=== PATIENT | male | born 1990 | race Caucasian/White ===

== ENCOUNTER 2019-11-25 21:15 | Emergency (ER) | payer BC, SELFPAY ==
--- NOTE | ~2019-11-25 | XR_ITS ---
EXAMINATION: XR chest 2V DATE: 11/25/2019 22:23 INDICATION: Cough with left arm and back pain. TECHNIQUE: PA and lateral views of the chest were obtained. COMPARISON: Chest radiograph dated 09/12/2019 FINDINGS: The lungs remain clear with no focal airspace opacities, pulmonary edema, pleural effusion or pneumot horax. The cardiomediastinal silhouette is normal. Visualized bones and soft tissues are unremarkable . IMPRESSION: 1. Normal chest radiograph. Reviewed, dictated and finalized at location A. TECHNICIAN IMPRESSION: 1. Normal chest radiograph.
[2019-11-25 21:33] VITALS: BP 127/76; PULSE 100; RESP 16; TEMP 36.4; O2SAT 100
[2019-11-25 22:07] VITALS: BP 132/83; PULSE 77; RESP 18; TEMP 36.8; O2SAT 97
--- NOTE | 2019-11-25 22:37 | ECG_ITS ---
Measurements Intervals [place] Rate: 76 P: 56 NH: 181 QRS: 68 QRSD: 98 T: 71 QT: 360 QTc: 405 Interpretive Statements SINUS RHYTHM INCOMPLETE RIGHT BUNDLE BRANCH BLOCK CONSIDER TYPE 3 BRUGADA PATTERN ABNORMAL ECG Electronically Signed On 11-26-2019 6:43:27 CRACKER DOUGH MIXER by Gennaro Braun D.O.
[2019-11-25] MEDS: KETOROLAC (*BKC) 60 MG/2 ML VIAL IM (22:52)
[2019-11-25] MEDS: DIAZEPAM 5 MG TABLET PO (22:53)
--- NOTE | 2019-11-25 23:16 | ED.URI ---
HPI - URI/Sore Throat General Chief Complaint: Upper Respiratory Infection Stated Complaint: Back pain, cough Time Seen by Provider: 11/25/19 22:12 Source: patient Mode of arrival: ambulatory Limitations: no limitations History of Present Illness HPI Narrative: This is a 29 year old male that presents to the ER for cough x 3 days. Also reports some mid back that has been constant. Reports it is worse with movement. Reports left sided chest pain when he coughs. He tried taking some Tylenol yesterday with little relief. Denies fever, shortness of breath, weakness, or numbness. Related Data Home Medications Medication Instructions Recorded Confirmed No Home Medications 11/25/19 11/25/19 Allergies Allergy/AdvReac Type Severity Reaction Status Date / Time bee pollen Allergy Unknown Difficulty Verified 11/25/19 21:36 Breathing bee stings Allergy Severe trouble Uncoded 11/25/19 21:36 breathing Review of Systems Review of Systems: Narrative: CONSTITUTIONAL: Denies fever ENT: Denies rhinorrhea, congestion, sore throat, or otalgia. CARDIOVASCULAR: Reports chest pain. Denies edema. RESPIRATORY: Reports cough. Denies dyspnea. NEUROLOGIC: Denies numbness, or weakness. All systems reviewed & are unremarkable except as noted in HPI and below PMFSH Past Medical History Medical History (Updated 11/26/19 @ 01:06 by Queenie Witt PA-C) History of asthma Social History Social History (Updated 11/26/19 @ 01:00 by Queenie Witt PA-C) Smoking status: Current every day smoker Alcohol intake: never Substance use: never Gender identity (if verbalized by the patient): Male Exam Narrative: Exam Narrative: GENERAL: Well-appearing, well-nourished, and in no acute distress. HEAD: Normocephalic, atraumatic. EYES: EOMI. ENT: Nares clear, no rhinorrhea or epistaxis. Mucous membranes moist. Oropharynx without tonsillar hypertrophy exudate or other lesions. Bilateral TMs pearly nur non-bulging NECK: Supple. No adenopathy or masses. CHEST: Clear to auscultation. No respiratory distress. No wheezes rales or rhonchi. Tender palpation of left mid anterior chest wall HEART: Regular rate and rhythm. No murmur heard. Normal peripheral pulses. BACK: No midline spinal tenderness. Tender to palpation of thoracic paraspinal musculature EXTREMITIES: Normal range of motion. No edema. Strength equal in bilateral upper and lower extremities (5/5) SKIN: Warm, dry, no rash. NEURO: No focal deficits. Alert and oriented x3. PSYCH: Normal mood and affect Course Consultations Consultation #1: Spoke with Dr. Norton about patient and work-up will follow-up in clinic Date: 11/26/19 Time: 01:02 Vital Signs Vital signs: Vital Signs Temperature 97.6 F 11/25/19 21:33 Pulse Rate 100 11/25/19 21:33 Respiratory Rate 16 11/25/19 21:33 Blood Pressure 127/76 11/25/19 21:33 Pulse Oximetry 100 11/25/19 21:33 Temperature 98.2 F 11/25/19 22:07 Pulse Rate 77 11/25/19 22:07 Respiratory Rate 18 11/25/19 22:07 Blood Pressure 132/83 11/25/19 22:07 Pulse Oximetry 97 11/25/19 22:07 MDM - URI/Sore Throat MDM Narrative Medical decision making narrative: Patient presents to the emergency department for left-sided chest pain and mid back pain since yesterday. Pain is reproducible. Patient is afebrile and nontoxic-appearing. Mild anemia on CBC, otherwise no acute changes. Metabolic panel is without acute changes. D-dimer and troponin are not elevated. Chest x-ray is without acute changes. Possible Brugada-like pattern on EKG. Patient does report history of syncopal episodes, the last one being 3 years ago. HEART score is 2. I spoke with Dr. norton about patient work-up who will follow-up in clinic. Patient was given warnings to return to the ER Lab Data Attestation: I reviewed the patient's lab results. Result diagrams: 11/25/19 23:12 11/26/19 00:09 Labs: Lab Results 11/25/19
[2019-11-25 23:34] LABS: Basophils Absolute Auto 0.1 K/mm3 (0.0-0.1); Basophils Percent Auto 0.5 % (0.2-1.2); Eosinophils Absolute Auto 0.5 K/mm3 (0-0.3); Eosinophils Percent Auto 5.5 % (0-4.4); Hematocrit 39.4 % (42.0-52.0); Hemoglobin 13.4 g/dL (14.0-18.0); Immature Granulocyte Absolute 0.01 K/mm3 (0.00-0.031); Immature Granulocyte Percent A 0.1 % (0-0.5); Lymphocytes Absolute Auto 3.67 K/mm3 (0.9-3.2); Lymphocytes Percent Auto 38.1 % (18.3-44.2); Mean Corpuscular Hemoglobin 30.2 pg (26-34); Mean Corpuscular Volume 88.7 fl (80-100); Mean Platelet Volume 10.7 fl (7.4-10.4); Monocytes Absolute Auto 0.7 K/mm3 (0.1-0.6); Monocytes Percent Auto 7.5 % (2.6-8.5); Neutrophils Absolute Auto 4.6 K/mm3 (1.3-6.7); Neutrophils Percent Auto 48.3 % (45.5-73.1); Platelet Count Result 233 k/mm3 (150-375); Red Blood Count 4.44 M/mm3 (4.6-6.20); Red Cell Distribution Width 12.4 % (11.5-14.5); White Blood Count 9.6 K/mm3 (4.5-10.0)
[2019-11-26 00:01] LABS: D Dimer 0.27 ug/mL (<0.48)
[2019-11-26 00:33] LABS: Blood Urea Nitrogen 18 mg/dL (9-20); Calcium 8.8 mg/dL (8.4-10.2); Carbon Dioxide 29 mmol/L (22-30); Chloride 102 mmol/L (98-107); Estimated CRCL calculation 119 ml/min; Estimated Glomerular Filt Rate > 60; Glucose 115 mg/dL (75-110); Potassium 3.6 mmol/L (3.4-5.0); Sodium 138 mmol/L (137-145)
[2019-11-26 00:43] LABS: Troponin I < 0.012 ng/mL (0.000-0.034)
[2019-11-26 01:26] VITALS: BP 128/78; PULSE 74; RESP 16; TEMP 36.8; O2SAT 100
== END 2019-11-26 01:28 | disposition home or self-care (01) ==
PROVIDERS: Physician Assistant; Emergency Provider Emergency Medicine; PCP Family Medicine
DX: M54.6 Pain in thoracic spine (principal); F17.210 Nicotine dependence, cigarettes, uncomplicated; J45.909 Unspecified asthma, uncomplicated
CPT/HCPCS: 36415; 71046; 80048; 84484; 85025; 85380; 87804; 93005; 96372; 99284; A9270; J1885

== ENCOUNTER 2019-11-26 15:53 | Emergency (ER) | payer BC, SELFPAY ==
--- NOTE | ~2019-11-26 | XR_ITS ---
EXAMINATION: XR ribs LT 2V DATE: 11/26/2019 16:24 INDICATION: Mid to left anterior rib/chest pain. TECHNIQUE: 4 views of the left ribs were obtained. COMPARISON: Chest radiograph dated 11/25/2019 FINDINGS: No rib fractures identified. Small calcified nodule at the lateral left midlung zone consistent with old granulomatous disease. Left lung and visualized portions of the right lung are otherwise clear wi th no pulmonary edema, pleural effusion or pneumothorax. Cardiomediastinal silhouette is normal. Norm al bowel gas pattern. IMPRESSION: 1. No rib fracture or acute cardiopulmonary disease. Reviewed, dictated and finalized at location A. MATION QA TESTER
--- NOTE | 2019-11-26 15:55 | ECG_ITS ---
Measurements Intervals [place] Rate: 93 P: 72 OR: 175 QRS: 45 QRSD: 106 T: 56 QT: 336 QTc: 420 Interpretive Statements SINUS RHYTHM INCOMPLETE RIGHT BUNDLE BRANCH BLOCK CONSIDER BRUGADA PATTERN BASELINE ARTIFACT- I, II, AVR, AVL ABNORMAL ECG Electronically Signed On 11-26-2019 19:47:36 GRAVITY PROSPECTING OPERATOR HELPER by Gennaro Braun D.O.
[2019-11-26 16:03] VITALS: BP 149/81; PULSE 76; RESP 20; O2SAT 100
[2019-11-26 16:10] VITALS: PULSE 80
[2019-11-26 16:15] VITALS: BP 138/85; BP 139/81; PULSE 86
[2019-11-26 16:17] VITALS: BP 130/82; PULSE 93
--- NOTE | 2019-11-26 16:21 | ED.CHESTPAIN ---
HPI - Chest Pain General Chief Complaint: Chest Pain <SLAVA Hogan Last Filed: 11/26/19 18:11> Stated Complaint: CP <SLAVA Hogan Last Filed: 11/26/19 18:11> Time Seen by Provider: 11/26/19 16:00 <SLAVA Hogan Last Filed: 11/26/19 18:11> Source: patient <SLAVA Hogan Last Filed: 11/26/19 18:11> Mode of arrival: ambulatory <SLAVA Hogan Last Filed: 11/26/19 18:11> Limitations: no limitations <SLAVA Hogan Last Filed: 11/26/19 18:11> History of Present Illness HPI narrative: This is a 29 year old male that presents to the ER for left sided chest pain that started just prior to arrival. Reports he was smoking a cigarette and started to feel nauseas. Reports he walked home and started to get lightheaded. Reports he layed down and started to have some left sided chest pain that was sharp. Reports it is still present, but not quite as severe. Reports lightheadedness is worse with standing. Denies shortness of breath, vomiting, numbness or weakness. <SLAVA Hogan Last Filed: 11/26/19 18:11> Related Data Home Medications: Home Medications Medication Instructions Recorded Confirmed No Home Medications 11/25/19 11/25/19 <SLAVA Hogan Last Filed: 11/26/19 18:11> Allergies/Adverse Reactions: Allergies Allergy/AdvReac Type Severity Reaction Status Date / Time bee pollen Allergy Unknown Difficulty Verified 11/25/19 21:36 Breathing bee stings Allergy Severe trouble Uncoded 11/25/19 21:36 breathing <SLAVA Hogan Last Filed: 11/26/19 18:11> Review of Systems Review of Systems: Narrative: CONSTITUTIONAL: Denies fever ENT: Denies rhinorrhea, congestion, sore throat, or otalgia. CARDIOVASCULAR: Reports chest pain. Denies palpitations, or edema. RESPIRATORY: Reports cough. Denies dyspnea. GASTROINTESTINAL: Reports nausea. Denies abdominal pain, vomiting, or diarrhea. MUSCULOSKELETAL: Reports joint pain, and myalgia. NEUROLOGIC: Denies numbness, or weakness. <Queenie Witt PA-C - Last Filed: 11/26/19 18:11> All systems reviewed & are unremarkable except as noted in HPI and below <Queenie Witt PA-C - Last Filed: 11/26/19 18:11> PMFSH Past Medical History Medical History: Medical History (Updated 11/26/19 @ 18:07 by Queenie Witt PA-C) History of asthma <Queenie Witt PA-C - Last Filed: 11/26/19 18:11> Social History Social History: Social History (Updated 11/26/19 @ 16:42 by Queenie Witt PA-C) Smoking status: Current every day smoker Alcohol intake: never Substance use: current Substance use type: marijuana Gender identity (if verbalized by the patient): Male <Queenie Witt PA-C - Last Filed: 11/26/19 18:11> Exam Narrative: Exam Narrative: GENERAL: Well-appearing, well-nourished, and in no acute distress. HEAD: Normocephalic, atraumatic. EYES: PERRLA and EOMI. ENT: Nares clear, no rhinorrhea or epistaxis. Mucous membranes moist. Oropharynx without tonsillar hypertrophy exudate or other lesions. Bilateral TMs pearly nur non-bulging NECK: Supple. No adenopathy or masses. No carotid bruits or JVD CHEST: Clear to auscultation. No respiratory distress. No wheezes rales or rhonchi. Tender to palpation of left anterior chest wall HEART: Regular rate and rhythm. No murmur heard. Normal peripheral pulses. EXTREMITIES: Normal range of motion. No edema. Strength equal in bilateral upper and lower extremities SKIN: Warm, dry, no rash. NEURO: No focal deficits. Alert and oriented x3. CN II-XII grossly intact PSYCH: Normal mood and affect <Queenie Witt PA-C - Last Filed: 11/26/19 18:11> Course Vital Signs Vital signs: Vital Signs Pulse Rate 76 11/26/19 16:03 Respiratory Rate 20 11/26/19 16:03 Blood Pressure 149/81 H 11/26/19 16:03 Pulse Oximetry 100 11/26/19 16:03 Pulse Rate 80 11/26/19 18:33
[2019-11-26 16:38] LABS: Blood Urea Nitrogen 14 mg/dL (9-20); Calcium 9.3 mg/dL (8.4-10.2); Carbon Dioxide 21 mmol/L (22-30); Chloride 102 mmol/L (98-107); Estimated CRCL calculation 119 ml/min; Estimated Glomerular Filt Rate > 60; Glucose 96 mg/dL (75-110); Potassium 3.9 mmol/L (3.4-5.0); Sodium 136 mmol/L (137-145)
[2019-11-26] MEDS: KETOROLAC 30 MG/ML VIAL (*BKC) IV PUSH (16:39)
[2019-11-26] MEDS: ONDANSETRON INJ 4 MG/2 ML VIAL IV PUSH (16:39)
[2019-11-26] MEDS: SODIUM CHLORIDE 0.9% IV 1,000 ML 999 ML IV CONT (16:40)
[2019-11-26 16:47] LABS: Basophils Absolute Auto 0.1 K/mm3 (0.0-0.1); Basophils Percent Auto 0.5 % (0.2-1.2); Eosinophils Absolute Auto 0.4 K/mm3 (0-0.3); Eosinophils Percent Auto 4.8 % (0-4.4); Hematocrit 38.6 % (42.0-52.0); Hemoglobin 12.9 g/dL (14.0-18.0); Immature Granulocyte Absolute 0.01 K/mm3 (0.00-0.031); Immature Granulocyte Percent A 0.1 % (0-0.5); Lymphocytes Absolute Auto 3.01 K/mm3 (0.9-3.2); Lymphocytes Percent Auto 32.9 % (18.3-44.2); Mean Corpuscular HGB Conc 33.4 g/dl (32-36); Mean Corpuscular Hemoglobin 30.2 pg (26-34); Mean Corpuscular Volume 90.4 fl (80-100); Mean Platelet Volume 10.2 fl (7.4-10.4); Monocytes Absolute Auto 0.7 K/mm3 (0.1-0.6); Monocytes Percent Auto 7.3 % (2.6-8.5); Neutrophils Percent Auto 54.4 % (45.5-73.1); Platelet Count Result 213 k/mm3 (150-375); Red Blood Count 4.27 M/mm3 (4.6-6.20); Red Cell Distribution Width 12.4 % (11.5-14.5); White Blood Count 9.1 K/mm3 (4.5-10.0)
[2019-11-26 16:50] LABS: Troponin I < 0.012 ng/mL (0.000-0.034)
[2019-11-26 17:27] VITALS: BP 119/77; PULSE 74; RESP 15; O2SAT 98
[2019-11-26 18:18] LABS: INR 0.9; Prothrombin Time 12.3 Seconds (11.1-14.7)
[2019-11-26 18:19] LABS: Partial Thromboplastin Time 25.2 SECONDS (22.3-36.8)
[2019-11-26 18:33] VITALS: BP 119/77; PULSE 80; RESP 18; O2SAT 98
== END 2019-11-26 18:35 | disposition home or self-care (01) ==
PROVIDERS: Emergency Provider Emergency Medicine; PCP Family Medicine
DX: R07.9 Chest pain, unspecified (principal); D64.9 Anemia, unspecified; J45.909 Unspecified asthma, uncomplicated; I45.10 Unspecified right bundle-branch block; R94.31 Abnormal electrocardiogram [ECG] [EKG]; F17.200 Nicotine dependence, unspecified, uncomplicated
CPT/HCPCS: 36415; 71100; 80048; 84484; 85025; 85610; 85730; 93005; 96361; 96365; 96375; 99284; J0131; J1885; J2405; J7030

== ENCOUNTER 2020-03-14 03:12 | Emergency (ER) | payer BC, SELFPAY ==
[2020-03-14 03:09] VITALS: BP 101/66; PULSE 76; RESP 20; TEMP 36.8; O2SAT 99
--- NOTE | 2020-03-14 03:17 | PC.NURSE ---
pt refused IV. at bedside
--- NOTE | 2020-03-14 03:22 | ED_ITS ---
HPI - Alcohol General Chief Complaint: Alcohol Stated Complaint: ETOH combative History of Present Illness HPI narrative: EMS called due to patient passing out. Multiple mixed drinks earlier in the evneing. Notably intoxicated. Apparently c/o chest pain prior to arrival here. Denies any chest pain at this time. Did vomit on himself. Related Data Home Medications Medication Instructions Recorded Confirmed No Home Medications 11/25/19 03/14/20 Allergies Allergy/AdvReac Type Severity Reaction Status Date / Time bee pollen Allergy Unknown Difficulty Verified 03/14/20 03:30 Breathing bee stings Allergy Severe trouble Uncoded 03/14/20 03:30 breathing Review of Systems Review of Systems: ROS unobtainable: Yes other (intoxication) [facility] Past Medical History Medical History History of asthma Social History Social History Smoking status: Current every day smoker Alcohol intake: never Substance use: current Substance use type: marijuana Gender identity (if verbalized by the patient): Male Exam Const: General: healthy appearing and no acute distress HENMT: Head: normal to inspection Resp: Effort & Inspection: normal respiratory effort Auscultation: clear to auscultation bilaterally Cardio: Rate: regular rate Rhythm: regular rhythm GI: GI Palp: Yes Soft to palpation and No Tenderness to palpation present (GI) Skin: General skin exam: normal color Rashes: no rashes Neuro: General: moves all extremities Speech: Abnormal speech present slurred Extrem: General: normal to inspection Course Vital Signs Vital signs: Vital Signs Temperature 36.8 C 03/14/20 03:09 Pulse Rate 76 03/14/20 03:09 Respiratory Rate 20 03/14/20 03:09 Blood Pressure 101/66 03/14/20 03:09 Pulse Oximetry 99 03/14/20 03:09 Temperature 36.8 C 03/14/20 03:09 Pulse Rate 70 03/14/20 05:31 Respiratory Rate 18 03/14/20 05:31 Blood Pressure 115/84 03/14/20 05:31 Pulse Oximetry 98 03/14/20 05:31 Discharge Plan Discharge Clinical Impression: Alcoholic intoxication Patient Disposition: Home, Self-Care Condition: Stable Instructions: Alcohol Intoxication (ED) Prescriptions: No Action No Home Medications RF: 0 Follow-up/Referrals: Boyd,MD Shivam [Primary Care Provider] - Discharge Date/Time: 03/14/20 05:34
[2020-03-14] MEDS: SODIUM CHLORIDE 0.9% IV 1,000 ML 1000 ML (03:37)
[2020-03-14] MEDS: ONDANSETRON INJ 4 MG/2 ML VIAL (03:37)
[2020-03-14 04:45] VITALS: BP 110/64; PULSE 74; RESP 16; O2SAT 98
[2020-03-14 05:31] VITALS: BP 115/84; PULSE 70; RESP 18; O2SAT 98
== END 2020-03-14 05:34 | disposition home or self-care (01) ==
PROVIDERS: Emergency Provider Emergency Medicine; PCP Family Medicine
DX: F10.129 Alcohol abuse with intoxication, unspecified (principal); F17.200 Nicotine dependence, unspecified, uncomplicated; J45.909 Unspecified asthma, uncomplicated
CPT/HCPCS: 96361; 96374; 99284; A9270; J2405; J7030

== ENCOUNTER 2021-11-12 13:00 | Emergency (ER) | payer BC, SELFPAY ==
[2021-11-12 13:10] VITALS: BP 145/84; PULSE 92; RESP 18; TEMP 36.8; O2SAT 98
--- NOTE | 2021-11-12 13:10 | ED.SKABFB ---
HPI - Skin/Abscess/Foreign Bdy General Chief complaint: Skin/Abscess/Foreign Body Stated complaint: rash on lt foot Source: patient Mode of arrival: ambulatory Limitations: no limitations History of Present Illness HPI narrative: 31-year-old male presented for complaints of rash to left foot for a few days per patient. He has not applied anything to the site. Denies any changes to lotion, cream, detergent. Endorses small round red area to the top of the foot and occasional itching. Denies nausea, vomiting, diarrhea, fever or chills. MD complaint: rash Related Data Allergies Allergy/AdvReac Type Severity Reaction Status Date / Time bee pollen Allergy Unknown Difficulty Verified 11/12/21 13:12 Breathing bee stings Allergy Severe trouble Uncoded 11/12/21 13:12 breathing Review of Systems Review of Systems: CONSTITUTIONAL: Denies body aches, fever, chills, or sweats. EYES: Denies visual changes, redness, or discharge. ENT: Denies rhinorrhea, congestion, sore throat, or otalgia. CARDIOVASCULAR: Denies chest pain, palpitations, or edema. RESPIRATORY: Denies cough or dyspnea. GASTROINTESTINAL: Denies abdominal pain, nausea, vomiting, or diarrhea. GENITOURINARY: Denies dysuria or hematuria. SKIN: endorses rash and itching MUSCULOSKELETAL: Endorses left flank pain; Denies back pain, joint pain, or myalgia. NEUROLOGIC: Denies headache, numbness, tingling, or weakness. PSYCH: Denies depression or anxiety. PMFSH Past Medical History Medical History History of asthma Social History Social History Smoking status: Current every day smoker Alcohol intake: never Substance use: current Substance use type: marijuana Gender identity (if verbalized by the patient): Male Comments At time of signature, I have reviewed and agree with nursing past medical, surgical, social and family history unless otherwise noted. Please see nursing chart for further information. There is no relevant family history pertinent to the presenting complaint Exam Narrative: GENERAL: Well-appearing, well-nourished, and in no acute distress. HEAD: Normocephalic, atraumatic. EYES: PERRLA, conjunctivae clear, and EOMI. ENT: Mucous membranes moist. NECK: Supple. No lymphadenopathy CHEST: Clear to auscultation. No respiratory distress. HEART: Regular rate and rhythm. MUSC: left flank tenderness with palpation SKIN: Warm, dry. Patch of erythematous circular lesion to left dorsal foot approx 1cm diameter, no drainage or blister noted NEURO: Alert and oriented x3. PSYCH: Normal mood and affect Course Course Emergency Course: Patient is aware of diagnosis, understands and agrees to treatment plan. Anticipatory guidance given. Patient agrees to follow-up as directed and is aware of reasons to seek care at the emergency department. Portions of this record may have been created with voice recognition software Level of Care: Express Care Visit Vital Signs Vital signs: Reviewed MDM - Skin/Abscess/Foreign Bdy MDM Narrative Medical decision making narrative: Does not appear at this time to be erythema multiforme, bullous, SJS, TEN; no evidence at this time to suggest RMSF, endocarditis or Lyme disease; patient looks well, nontoxic and is tolerating oral intake; no neurologic signs or symptoms; no headache, photophobia or neck pain; afebrile; appropriate for initial outpatient treatment; discussed the importance of follow-up, patient agrees question, viral exanthema, contact dermatitis, allergic dermatitis, eczema, urticaria, ringworm. No soft palate or uvula edema, no tongue, lip edema or other mucosal involvement, no respiratory compromise, no stridor, no wheezing, no wheezing, no history of syncope, no hypotension, no nausea, vomiting, or diarrhea. Instructed patient to go to nearest ER immediately for any worsening symptoms includin
== END 2021-11-12 13:25 | disposition home or self-care (01) ==
PROVIDERS: Emergency Provider Nurse Practitioner Family
DX: B35.3 Tinea pedis (principal); R10.9 Unspecified abdominal pain; J45.909 Unspecified asthma, uncomplicated
CPT/HCPCS: 99213; G0463

== ENCOUNTER 2025-05-28 22:22 | Emergency (ER) | payer BC, SELFPAY ==
--- OUTSIDE RECORDS SUMMARY | 2025-05-28 22:24 | XMS_ITS | Clinical Summary ---
Author Organization [facility] Address [address] [place] [id number] Care Team Providers Care International Relations Professor Name Role Phone Unavailable Primary Care Provider Unavailabl e Social History Tobacco Use Types Packs/Day Years Used Date Smoking Tobacco: Never Assessed Sex and Gender Information Value Date Recorded Sex Assigned at Not on file Legal Sex Male 5:09 PM CDT Gender Identity Not on file Sexual Orientation Not on file Plan of Treatment Health Maintenance Due Date Last Done Comments Annual Physical 1995 Hepatitis C 2010 DTaP, Tdap and Td Vaccines ( 1 - Tdap) 2011 Hepatitis B Vaccines (1 of 3 - 19+ 3-dose series) 2011 HPV Vaccines (1 - 3-dose SCD M series) 2019 COVID-19 Vaccine (2023-2 5 season) 2024 Meningococcal B Vaccine Aged Out No l onger eligible based on patient's age to complete this topic Meningococcal Vaccine Aged Out No angela leon eligible based on patient's age to complete this topic Pneumococcal Vaccine: Pediat rics (0 to 5 Years) and At-Risk Patients (6 to 49 Years) Aged Out No longer eligible b ased on patient's age to complete this topic RSV Immunizations Under 20 Months Aged Out No longer eligible based on patient's age to complete this topic
[2025-05-28 22:29] VITALS: BP 141/74; PULSE 99; RESP 20; TEMP 36.7; O2SAT 100
== END 2025-05-29 02:00 | disposition left against medical advice (07) ==
PROVIDERS: Emergency Provider Student in an Organized Health Care Education/Training Program
DX: T63.301A Toxic effect of unspecified spider venom, accidental (unintentional), initial encounter (principal)
CPT/HCPCS: 99199

== ENCOUNTER 2025-05-29 03:26 | Emergency (ER) | payer BC, SELFPAY ==
--- OUTSIDE RECORDS SUMMARY | 2025-05-29 03:28 | XMS_ITS | Clinical Summary ---
Author Organization [facility] Address [address] [place] [id number] Care Team Providers Care Sap Hana Developer Name Role Phone Unavailable Primary Care Provider [...]
[2025-05-29 03:29] VITALS: BP 138/62; PULSE 98; RESP 20; TEMP 36.8; O2SAT 100
[2025-05-29 06:23] VITALS: BP 128/74; PULSE 89; RESP 18; O2SAT 100
--- NOTE | 2025-05-29 06:32 | ED.SKABFB ---
HPI - Skin/Abscess/Foreign Bdy General Chief complaint: Skin/Abscess/Foreign Body Stated complaint: spider bite Time Seen by Provider: 05/29/25 06:23 Source: patient and RN notes reviewed Mode of arrival: EMS History of Present Illness HPI narrative: Patient presents with concern for a spider bite on his left upper thigh. He notes that it has a black center area and surrounding redness and in general is painful. Patient had presented earlier in the night to the emergency department but left without being seen due to the wait time. However after he left he states that the pain became more intense and thus he called 911. He 1st noticed this area 3 days ago and it has been increasing in size. Denies fevers but has been having chills. Denies IV drug use. No history of MRSA. He has not been applying anything topically or taking any p.o. medications. Did not see a bug/spider/insect although presumes it was this as he was on the ground under a friend's truck. He works as a cafe associate. Denies being pricked by erick bethn. Related Data Allergies Allergy/AdvReac Type Severity Reaction Status Date / Time bee pollen Allergy Unknown Difficulty Verified 05/28/25 22:32 Breathing bee stings Allergy Severe trouble Uncoded 05/28/25 22:32 breathing PMFSH Past Medical History Medical History History of asthma Social History Social History Smoking status: Current every day smoker Alcohol intake: never Substance use: current Substance use type: marijuana Gender identity (if verbalized by the patient): Male Exam Narrative: GENERAL: Well-appearing, well-nourished, and in no acute distress. EYES: Patient did not remove hat for entire encounter; unable to assess ENT: Nares clear, no rhinorrhea or epistaxis. Gross auditory acuity intact. NECK: Supple. No meningismus. CHEST: Speaking in full sentences. No respiratory distress. HEART: Regular rate and rhythm. . ABDOMEN: Soft, nondistended. No rigidity or guarding. Not peritoneal EXTREMITIES: Normal range of motion. Left mid thigh abscess with surrounding cellulitis. Also small area on montalvo of left lower extremity. SKIN: Warm, dry; as above NEURO: No focal deficits. Alert and oriented. Answering questions. Following commands. Normal speech without aphasia or dysarthria. PSYCH: Congruent mood and affect. Course Vital Signs Vital signs: Vital Signs Temperature 98.2 F 05/29/25 03:29 Pulse Rate 98 05/29/25 03:29 Respiratory Rate 20 05/29/25 03:29 Blood Pressure 138/62 05/29/25 03:29 Pulse Oximetry 100 05/29/25 03:29 Oxygen Delivery Room Air 05/29/25 03:29 Temperature 98.2 F 05/29/25 03:29 Pulse Rate 89 05/29/25 06:23 Respiratory Rate 18 05/29/25 06:23 Blood Pressure 128/74 05/29/25 06:23 Pulse Oximetry 100 05/29/25 06:23 Oxygen Delivery Room Air 05/29/25 03:29 Procedures Abscess I/D lower extremity: Date of Incision: 05/29/25 Time of Incision: 06:55 Side (if applicable): left Sedation/analgesia: none Local Anesthetic: lidocaine 1% Amount of anesthesia used (mL): 2 Technique: incised with #11 blade Irrigation: Yes Packing used?: none I&D Results: Pus and Blood Complications: pain MDM - Skin/Abscess/Foreign Bdy MDM Narrative Medical decision making narrative: 34yo male presents with concern for spider bite. In the emergency department they are afebrile with vital signs within normal limits. Mild leukocytosis. Normocytic anemia which is stable from previous. Point of care ultrasound performed which demonstrates 2 x 2 x 2.5cm abscess. I&D as above. Patient had been given PO analgesia and first dose antibiotic. Wound culture obtained. Area of cellulitis marked with skin pen. Discussed expected time course, reiterated wound care and taking antibiotics, and given ED return precautions. Otherwise stable for discharge, appears non toxic, VS WNL. Also provided Rxs for APAP and NSAID. Differential Diagnosis Differential diagnosis: Likely abscess of skin or subcutaneous tissue, cellulitis, insect bites, contact dermatitis and other (Sporotrichosis; MRSA; folliculitis) Lab Data Attestation: I reviewed the patient's lab results. 05/29/25 06:46 05/29/25 06:46 Labs: Lab Results 05/29/25 Range/Units 06:46 WBC 11.0 H (4.5-10.0) K/mm3 RBC 4.10 L (4.6-6.20) M/mm3 Hgb 12.3 L (14.0-18.0) g/dL Hct 38.1 L (42.0-52.0) % MCV 92.9 (80-100) fl MCH 30.0 (26-34) pg MCHC 32.3 (32-36) g/dl RDW 13.1 (11.5-14.5) % Plt Count 251 (150-375) k/mm3 MPV 9.3 (7.4-10.4) fl Immature Gran % (Auto) 0.3 (0-0.5) % Neut % (Auto) 65.9 (45.5-73.1) % Lymph % (Auto) 19.9 (18.3-44.2) % Callaway % (Auto) 9.7 H (2.6-8.5) % Eos % (Auto) 3.7 (0-4.4) % Baso % (Auto) 0.5 (0.2-1.2) % Lymph # (Auto) 2.18 (0.9-3.2) K/mm3 [place]away # (Auto) 1.1 H (0.1-0.6) K/mm3 Eos # (Auto) 0.4 H (0-0.3) K/mm3 Baso # (Auto) 0.1 (0.0-0.1) K/mm3 Abs Immat Gran (auto) 0.03 (0.00-0.031) K/mm3 Absolute Neuts (auto) 7.2 H (1.3-6.7) K/mm3 Absolute Nucleated RBC 0.000 (0.0-0.012) K/mm3 Nucleated RBC % 0.0 (0.0-0.2) % ESR 39 H (0-20) mm/hr Sodium 139 (137-145) mmol/L Potassium 4.0 (3.4-5.0) mmol/L Chloride 104 (98-107) mmol/L Carbon Dioxide 28 (22-30) mmol/L Anion Gap 7 (4-12) mmol/L BUN 14 (9-20) mg/dL Creatinine 1.01 (0.7-1.3) mg/dL Estim Creat Clear Calc Not Reportable Estimated GFR > 60 (59 - ) Glucose 103 (65-110) mg/dL Lactic Acid 0.6 L (0.7-2.0) mmol/L Calcium 8.9 (8.4-10.2) mg/dL C-Reactive Protein 3.9 H (<1.0) mg/dL Discharge Plan Discharge Clinical Impression: Cellulitis and abscess of left leg, Encounter for incision and drainage procedure, Normocytic anemia, Elevated erythrocyte sedimentation rate Patient Disposition: Home Condition: Stable Instructions: Antibiotic Form, Cellulitis (ED), Abscess (ED), Anemia (ED), Abscess Incision and Drainage (DC) Additional Instructions: You may notice that the abscess continues to drain blood/pus throughout the day. Keep the area clean warm and dry. Washing the area with warm soapy water is fine but make sure it is completely dry before applying a new bandage. Take the entire course of antibiotics. You received the 1st dose in the emergency department. Acetaminophen/Tylenol (maximum 4000 mg per day) is safe to take with NSAIDs (ibuprofen/Motrin) for pain relief. Follow-up with your primary care physician. If you do not have 1 the name of a doctor is listed below. Return to the emergency department new or worsening symptoms such as spreading redness, fever greater than 100.4? F, etc. Patient Language: Sami Prescriptions: New cephalexin 500 mg capsule 500 mg PO Q6H 5 Days Qty: 19 0RF Rx Instructions: rec'd first dose in ED 8/8 AM acetaminophen 500 mg capsule 1,000 mg PO Q6H PRN (Reason: pain) Qty: 30 0RF ibuprofen 600 mg tablet 600 mg PO TID PRN (Reason: pain) Qty: 30 0RF No Action clotrimazole 1 % cream 1 applic topical BID 14 Days Qty: 30 0RF Follow-up/Referrals: PHYSICIAN,[facility] [Primary Care Provider] - Ortega Kay MD [Physician] - Stand Alone Forms: Work/School Release IP Time of Disposition: 07:47
--- OUTSIDE RECORDS SUMMARY | 2025-05-29 06:34 | XMS_ITS | Clinical Summary ---
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
[2025-05-29 06:52] LABS: Hematocrit 38.1 % (42.0-52.0); Hemoglobin 12.3 g/dL (14.0-18.0); Immature Granulocyte Percent A 0.3 % (0-0.5); Lymphocytes Absolute Auto 2.18 K/mm3 (0.9-3.2); Mean Corpuscular HGB Conc 32.3 g/dl (32-36); Mean Corpuscular Hemoglobin 30.0 pg (26-34); Mean Corpuscular Volume 92.9 fl (80-100); Nucleated Red Blood Cells Absolute Auto 0.000 K/mm3 (0.0-0.012); Nucleated Red Blood Cells Perc 0.0 % (0.0-0.2); Platelet Count Result 251 k/mm3 (150-375); Red Blood Count 4.10 M/mm3 (4.6-6.20); White Blood Count 11.0 K/mm3 (4.5-10.0)
[2025-05-29] MEDS: HYDROcodone/acetaminophen (*CRX) 5-325 MG TABLET 1 TAB PO (06:52)
[2025-05-29 07:11] LABS: Anion Gap 7 mmol/L (4-12); Blood Urea Nitrogen 14 mg/dL (9-20); Calcium 8.9 mg/dL (8.4-10.2); Carbon Dioxide 28 mmol/L (22-30); Chloride 104 mmol/L (98-107); Estimated Glomerular Filt Rate > 60; Glucose 103 mg/dL (65-110); Potassium 4.0 mmol/L (3.4-5.0); Sodium 139 mmol/L (137-145)
[2025-05-29] MEDS: CEPHALEXIN 500 MG CAPSULE PO (07:40)
[2025-05-29 08:55] LABS: CRP 3.9 mg/dL (<1.0)
== END 2025-05-29 07:56 | disposition home or self-care (01) ==
PROVIDERS: Emergency Provider Student in an Organized Health Care Education/Training Program
DX: L03.116 Cellulitis of left lower limb (principal); L02.416 Cutaneous abscess of left lower limb; R70.0 Elevated erythrocyte sedimentation rate; J45.909 Unspecified asthma, uncomplicated; D64.9 Anemia, unspecified
CPT/HCPCS: 10060; 36415; 80048; 83605; 85025; 85652; 86140; 87070; 87075; 87205; 99283; A9270